=== PATIENT | female | born 1990 | race Asian ===

== ENCOUNTER 2019-08-19 18:45 | Observation (INO) | payer BC, SELFPAY ==
[2019-08-19] VITALS (19 sets, daily range): BP systolic 142; BP diastolic 79; PULSE 69–104; TEMP 36.8–36.9; O2SAT 99–100; BMI 28.6
--- NOTE | ~2019-08-19 | US_ITS ---
EXAMINATION: US OB limited w BPP DATE: 08/20/2019 08:02 INDICATION: Vaginal bleeding. Third trimester of . TECHNIQUE: Real-time pelvic ultrasound was performed. COMPARISON: None. FINDINGS: There is a single living fetus in vertex presentation. The placenta is fundal and normal. hear t rate is 142 beats per minute (bpm). The amniotic fluid index is 15.9 cm, which is normal. Biophysical profile performed by the technologist: breathing (30 sec sustained breathing in 30 minutes): 2 out of 2 movement (3 gross body movements in 30 minutes): 2 out of 2 tone (one episode of epzrnuc-osrpkcdiv-qvdhanm limb movement): 2 out of 2 Amniotic fluid pocket (2 cm): 2 out of 2 Total score: 8 out of 8 IMPRESSION: 1. Single living fetus in vertex presentation. 2. Biophysical profile 8 out of 8. Reviewed, dictated and finalized at location A.
--- NOTE | 2019-08-19 19:14 | PC.NURSE ---
Updated Dr. Rich on patient complaint of vaginal bleeding during . Patient referred to OB unit for assessment per Dr. Rich. Patient reports vaginal bleeding bright red x1 panty liner at 1800. Patient states bleeding has decreased and she is only spotting with wiping dark red/brown blood. Patient denies any cramping/contractions or pain in abdomen. Abdomen palpates soft. VSS. Patient denies complications with current . FHT reactive. Orders received.
--- NOTE | 2019-08-19 20:07 | PC.NURSE ---
Updated Dr. Rich on SVE /-2. Blood noted on glove following SVE. FHT deceleration x2.5 minutes into 90's following contraction. Order given.
[2019-08-19 21:02] LABS: Basophils Percent Auto 0.2 % (0.2-1.2); Eosinophils Percent Auto 0.2 % (0-4.4); Hematocrit 36.6 % (37.0-47.0); Hemoglobin 11.1 g/dL (12.0-15.0); Immature Granulocyte Absolute 0.05 K/mm3 (0.00-0.031); Immature Granulocyte Percent A 0.6 % (0-0.5); Lymphocytes Absolute Auto 1.91 K/mm3 (0.9-3.2); Lymphocytes Percent Auto 21.1 % (18.3-44.2); Mean Corpuscular HGB Conc 30.3 g/dl (32-36); Mean Corpuscular Hemoglobin 20.9 pg (26-34); Mean Corpuscular Volume 68.8 fl (80-100); Mean Platelet Volume 11.1 fl (7.4-10.4); Neutrophils Absolute Auto 6.1 K/mm3 (1.3-6.7); Neutrophils Percent Auto 66.9 % (45.5-73.1); Platelet Count Result 291 k/mm3 (150-375); Red Blood Count 5.32 M/mm3 (4.2-5.4); Red Cell Distribution Width 18.5 % (11.5-14.5)
[2019-08-19 21:12] LABS: Alanine Aminotransferase 8 U/L (4-35); Albumin Level 4.1 g/dL (3.5-5.1); Alkaline Phosphatase 169 U/L (38-126); Aspartate Amino Transferase 18 U/L (14-36); Bilirubin,Total 0.3 mg/dL (0.2-1.3); Blood Urea Nitrogen 6 mg/dL (7-17); Calcium 9.2 mg/dL (8.4-10.2); Carbon Dioxide 23 mmol/L (22-30); Chloride 104 mmol/L (98-107); Estimated CRCL calculation 128 ml/min; Estimated Glomerular Filt Rate > 60; Glucose 92 mg/dL (65-105); Partial Thromboplastin Time 28.1 SECONDS (22.3-36.8); Potassium 4.3 mmol/L (3.4-5.0); Prothrombin Time 12.4 Seconds (11.1-14.7); Sodium 135 mmol/L (137-145)
[2019-08-19 21:13] LABS: Fibrinogen 424 mg/dl (215-510)
--- NOTE | 2019-08-19 22:47 | PC.NURSE ---
Updated Dr. Rich on patient lab results, maternal assessment and FHT. Order given to keep patient overnight for observation and ultrasound in AM with BPP.
--- NOTE | 2019-08-19 22:50 | PC.NURSE ---
Plan of care discussed with patient. Patient agrees with plan of care and denies questions.
[2019-08-20 02:37] VITALS: TEMP 36.7
[2019-08-20 05:00] VITALS: TEMP 36.6
--- NOTE | 2019-08-20 05:37 | PC.NURSE ---
Patient reports decreased vaginal spotting with wiping. Patient denies any new vaginal bleeding, abdominal pain/cramping. Patient resting comfortably and dozing.
[2019-08-20 08:12] VITALS: BP 121/77; PULSE 72
--- NOTE | 2019-08-20 08:24 | PC.NURSE ---
Return from u/s and will compare and discuss with Dr Rich.
--- NOTE | 2019-08-22 17:29 | P.PNOB_ITS ---
OB - Triage/Final Diagnosis Evaluation Laboratory results: Laboratory Tests 08/19/19 08/19/19 08/19/19 20:18 20:18 20:18 WBC 9.0 RBC 5.32 Hgb 11.1 L Hct 36.6 L MCV 68.8 L MCH 20.9 L MCHC 30.3 L RDW 18.5 H Plt Count 291 MPV 11.1 H Immature Gran % (Auto) 0.6 H Neut % (Auto) 66.9 Lymph % (Auto) 21.1 [place] % (Auto) 11.0 H Eos % (Auto) 0.2 Baso % (Auto) 0.2 Lymph # (Auto) 1.91 [place] # (Auto) 1.0 H Eos # (Auto) 0.0 Baso # (Auto) 0.0 Abs Immat Gran (auto) 0.05 H Absolute Neuts (auto) 6.1 Absolute Nucleated RBC 0.0 Nucleated RBC % 0.0 % Immature Plt Fraction 4.0 PT INR APTT Fibrinogen 424 Sodium 135 L Potassium 4.3 Chloride 104 Carbon Dioxide 23 BUN 6 L Creatinine 0.50 L Estim Creat Clear Calc 128 Estimated GFR > 60 Glucose 92 Calcium 9.2 Total Bilirubin 0.3 AST 18 ALT 8 Alkaline Phosphatase 169 H Total Protein 8.0 Albumin 4.1 Blood Type Antibody Screen 08/19/19 08/19/19 20:18 20:18 WBC RBC Hgb Hct MCV MCH MCHC RDW Plt Count MPV Immature Gran % (Auto) Neut % (Auto) Lymph % (Auto) [place] % (Auto) Eos % (Auto) Baso % (Auto) Lymph # (Auto) [place] # (Auto) Eos # (Auto) Baso # (Auto) Abs Immat Gran (auto) Absolute Neuts (auto) Absolute Nucleated RBC Nucleated RBC % % Immature Plt Fraction PT 12.4 INR 1.0 APTT 28.1 Fibrinogen Sodium Potassium Chloride Carbon Dioxide BUN Creatinine Estim Creat Clear Calc Estimated GFR Glucose Calcium Total Bilirubin AST ALT Alkaline Phosphatase Total Protein Albumin Blood Type O Positive Antibody Screen Negative Final Diagnosis (1) Vaginal bleeding during , antepartum: Code(s): O46.90 - Antepartum hemorrhage, unspecified, unspecified trimester Status: Acute
--- NOTE | 2019-08-22 17:30 | PM.IMHP ---
H&P: HPI History of Present Illness Chief complaint: Vaginal Bleeding Narrative: Sj Martin I is a 29 year old female at 37 weeks gestation initially presented to L&D with vaginal bleeding. Review of Systems Constitutional: Constitutional: Reports no additional constitutional complaints ENT: Reports system reviewed and no additional complaints, except as documented Cardiovascular: Cardiovascular: Reports no additional cardiovascular complaints Respiratory: Respiratory: Reports no additional respiratory complaints Gastrointestinal: Gastrointestinal: Reports no additional gastrointestinal complaints Genitourinary: Comments: vaginal bleeding Musculoskeletal: Musculoskeletal: Reports no additional musculoskeletal complaints Neurologic: Reports system reviewed and no additional complaints, except as documented Psychiatric: Psychiatric: Reports no additional psychiatric complaints COUNT INCLUDES THE [facility] Family History Family History (Updated 08/08/19 @ 14:38 by Amber Santamaria RN) Other Unknown family medical history Social History Social History Substance use: never Spiritual care concerns: No Meds Home Medications and Allergies Home Medications Medication Instructions Recorded Confirmed Type PNV cmb#95-ferrous fumarate-FA 1 tablet PO DAILY 08/08/19 08/20/19 History [] Allergies Allergy/AdvReac Type Severity Reaction Status Date / Time No Known Allergies Allergy Verified 08/20/19 05:41 Exam Narrative: Exam Narrative: exam performed by L&D lead performance support analyst. Assessment and Plan Assessment and plan (1) Term : Code(s): Z34.90 - Encounter for supervision of normal , unspecified, unspecified trimester Status: Acute (2) Vaginal bleeding during , antepartum: Code(s): O46.90 - Antepartum hemorrhage, unspecified, unspecified trimester Status: Acute
== END 2019-08-20 09:45 | disposition home or self-care (01) ==
PROVIDERS: Admitting Provider Obstetrics & Gynecology; PCP Emergency Medicine; Visit Provider Obstetrics & Gynecology
DX: O46.93 Antepartum hemorrhage, unspecified, third trimester (principal); Z3A.37 37 weeks gestation of pregnancy
CPT/HCPCS: 36415; 76815; 76819; 80053; 85025; 85055; 85384; 85610; 85730; 86850; 86900; 86901; G0378; G0379

== ENCOUNTER 2019-08-28 15:35 | Observation (INO) | payer BC, SELFPAY ==
--- NOTE | ~2019-08-28 | US_ITS ---
EXAMINATION: US OB limited w BPP EXAM DATE: 08/28/2019 18:40 INDICATION: Bleeding. . Third trimester. TECHNIQUE: Pelvic obstetrical transabdominal sonogram was performed by a technologist. There are mu ltiple grayscale and Doppler images available for interpretation. Comparison is made to prior examina tion from 08/20/2019. FINDINGS: There is a single fetus identified in vertex presentation with a heart rate of 127 beats pe r minute. The placenta is located in the fundal position. There is no sonographic evidence of retrop lacental hemorrhage identified. The amniotic fluid index is 12.4 centimeters, which is normal. BIOPHYSICAL PROFILE (performed by the technologist) breathing (30 sec sustained breathing in 30 minutes): 2 out of 2 movement (3 gross body movements in 30 minutes): 2 out of 2 tone (one episode of qlcyfix-neeojgjnw-veaocsd limb movement): 2 out of 2 Amniotic fluid pocket (2 cm): 2 out of 2 Total score: 8 out of 8 IMPRESSION: 1. Single fetus with heart rate of 127 bpm. 2. Normal biophysical profile score of 8 out of 8. 3. Normal DANIEL 12.4 cm. 4. Unremarkable placenta. Reviewed, dictated and finalized at location A.
[2019-08-28 15:47] VITALS: TEMP 36.8
[2019-08-28 17:45] VITALS: BP 105/67; PULSE 80
--- NOTE | 2019-08-28 17:58 | OBADM ---
This patient, Sj Martin I, admitted to the OB room Labor/Delivery/Recovery 106 for observation. Patient/family oriented to hospital policies and general routines including ID bracelet, bed and alarms, visiting hours, pain management, procedures, bathroom and other care routines, personal items, smoking policy, room service/diet, and visiting hours. Patient/Family are encouraged to report perceived risks to care and to ask questions if they do not understand what they are told or what they should do.
--- NOTE | 2019-08-29 15:36 | PM.OBTRLD ---
OB - Triage/Final Diagnosis Evaluation Vital signs: Vital Signs - 24 hr 08/28/19 15:47 08/28/19 17:45 Temperature 36.8 C Pulse Rate 80 Blood Pressure 105/67 Final Diagnosis (1) Vaginal bleeding during , antepartum: Code(s): O46.90 - Antepartum hemorrhage, unspecified, unspecified trimester Status: Acute
== END 2019-08-28 19:50 | disposition home or self-care (01) ==
PROVIDERS: Admitting Provider Obstetrics & Gynecology; PCP Emergency Medicine; Visit Provider Obstetrics & Gynecology
DX: O46.93 Antepartum hemorrhage, unspecified, third trimester (principal); Z3A.00 Weeks of gestation of pregnancy not specified
CPT/HCPCS: 76815; 76819; G0378; G0379

== ENCOUNTER 2019-08-29 09:01 | Inpatient (IN) | payer BC, SELFPAY ==
[2019-08-29] VITALS (148 sets, daily range): BP systolic 62–140; BP diastolic 27–90; PULSE 64–147; RESP 16; TEMP 36.6–38.2; O2SAT 92–100; BMI 28.6
[2019-08-29] MEDS: LACTATED RINGERS 1,000 ML 125 ML IV CONT ×3 (10:43→20:10)
[2019-08-29 10:45] LABS: Basophils Percent Auto 0.1 % (0.2-1.2); Hematocrit 37.3 % (37.0-47.0); Hemoglobin 11.7 g/dL (12.0-15.0); Immature Granulocyte Absolute 0.06 K/mm3 (0.00-0.031); Immature Granulocyte Percent A 0.4 % (0-0.5); Immature Platelet Fraction Pct 2.6 % (0.9-11.2); Lymphocytes Absolute Auto 1.04 K/mm3 (0.9-3.2); Lymphocytes Percent Auto 6.9 % (18.3-44.2); Mean Corpuscular HGB Conc 31.4 g/dl (32-36); Mean Corpuscular Hemoglobin 21.3 pg (26-34); Mean Corpuscular Volume 67.9 fl (80-100); Monocytes Absolute Auto 0.7 K/mm3 (0.1-0.6); Monocytes Percent Auto 4.5 % (2.6-8.5); Neutrophils Absolute Auto 13.2 K/mm3 (1.3-6.7); Neutrophils Percent Auto 88.1 % (45.5-73.1); Platelet Count Result 276 k/mm3 (150-375); Red Blood Count 5.49 M/mm3 (4.2-5.4); Red Cell Distribution Width 19.6 % (11.5-14.5)
--- NOTE | 2019-08-29 10:45 | PM.IMHP ---
H&P: HPI History of Present Illness Chief complaint: Contractions Narrative: Sj Martin I is a 29 year old female at 38 weeks and 5 days gestation presenting to L&D with contractions. She states she has been having intermittent contractions over the last week, but became more regular and intense this morning. Contractions are about every 6-8 minutes apart. She has also had unexplained vaginal bleeding over the last week or so. BPP and US have been reassuring. Placenta is fundal location. She had red bleeding yesterday and was evaluated on L&D cervix was 1cm This morning, the bleeding is more like brownish discharge. On initial exam on L&D, her cervix was noted to be dilated to 3cm. Review of Systems Constitutional: Constitutional: Reports no additional constitutional complaints Cardiovascular: Cardiovascular: Reports no additional cardiovascular complaints Respiratory: Respiratory: Reports no additional respiratory complaints Gastrointestinal: Gastrointestinal: Reports no additional gastrointestinal complaints Genitourinary: Genitourinary: Reports no additional female genitourinary complaints Neurologic: Reports system reviewed and no additional complaints, except as documented Psychiatric: Psychiatric: Reports no additional psychiatric complaints [facility] Family History Family History Other Unknown family medical history Social History Social History Substance use: never Spiritual care concerns: No Meds Home Medications and Allergies Home Medications Medication Instructions Recorded Confirmed Type PNV cmb#95-ferrous fumarate-FA 1 tablet PO DAILY 08/08/19 08/20/19 History [] Allergies Allergy/AdvReac Type Severity Reaction Status Date / Time No Known Allergies Allergy Verified 08/20/19 05:41 Exam Const: General: no acute distress and uncomfortable (with contractions) Resp: Effort & Inspection: normal respiratory effort Cardio: Rate: regular rate GI: GI Palp: Yes Soft to palpation Skin: General skin exam: normal color Psych: Mental Status: mental status grossly normal Affect: normal affect Assessment and Plan Assessment and plan (1) Term : Code(s): Z34.90 - Encounter for supervision of normal , unspecified, unspecified trimester Status: Acute (2) Vaginal bleeding during , antepartum: Code(s): O46.90 - Antepartum hemorrhage, unspecified, unspecified trimester Status: Acute (3) Active labor: Status: Acute Assessment and Plan: Admit to L&D Pain management as requested GBS negative Discussed augmentation of labor if needed
--- NOTE | 2019-08-29 11:07 | LDADM ---
This patient, Sj Martin I, was admitted to Labor/Delivery/Recovery 106 on 08/29/19 at 09:01. Plans for labor, pain management and were discussed with patient. Patient/family oriented to hospital policies and general routines including ID bracelet, bed and alarms, visiting hours, pain management, procedures, bathroom and other care routines, personal items, smoking policy, room service/diet and guest tray routines, security routines, and visiting hours. Patient/Family are encouraged to report perceived risks to care and to ask questions if they do not understand what they are told or what they should do. See OBIX for further documentation.
[2019-08-29] MEDS: OXYTOCIN 30 UNITS/NS 500 ML 30 UNITS/500 ML BAG 125 UNITS IV CONT ×2 (14:43→20:09)
--- NOTE | 2019-08-29 14:50 | WPDANESEPPF ---
Anes - Initial Pre Proc Eval Date/Time: 08/29/19 12:47 Surgeon: Sea Trimble MD Pre Op Diagnosis: Contractions Patient Data Age: 29 Gender: F Height: 1.57 m Weight: 71 kg Last Vital Signs Temp 37.1 C 08/29/19 13:00 Pulse 83 08/29/19 14:45 BP 113/67 08/29/19 14:45 Pulse Ox 100 08/29/19 14:46 Allergies Allergy/AdvReac Type Severity Reaction Status Date / Time No Known Allergies Allergy Verified 08/20/19 05:41 Home Medications Medication Instructions Recorded Confirmed Type PNV cmb#95-ferrous fumarate-FA 1 tablet PO DAILY 08/08/19 08/20/19 History [] Laboratory Tests 08/29/19 08/29/19 08/29/19 10:37 10:37 10:37 WBC 15.0 K/mm3 H K/mm3 (4.5-10.0) RBC 5.49 M/mm3 H M/mm3 (4.2-5.4) Hgb 11.7 g/dL L g/dL (12.0-15.0) Hct 37.3 % % (37.0-47.0) MCV 67.9 fl L fl (80-100) MCH 21.3 pg L pg (26-34) MCHC 31.4 g/dl L g/dl (32-36) RDW 19.6 % H % (11.5-14.5) Plt Count 276 k/mm3 k/mm3 (150-375) MPV TNP Immature Gran % (Auto) 0.4 % % (0-0.5) Neut % (Auto) 88.1 % H % (45.5-73.1) Lymph % (Auto) 6.9 % L % (18.3-44.2) [place] % (Auto) 4.5 % % (2.6-8.5) Eos % (Auto) 0.0 % % (0-4.4) Baso % (Auto) 0.1 % L % (0.2-1.2) Lymph # (Auto) 1.04 K/mm3 K/mm3 (0.9-3.2) [place] # (Auto) 0.7 K/mm3 H K/mm3 (0.1-0.6) Eos # (Auto) 0.0 K/mm3 K/mm3 (0-0.3) Baso # (Auto) 0.0 K/mm3 K/mm3 (0.0-0.1) Abs Immat Gran (auto) 0.06 K/mm3 H K/mm3 (0.00-0.031) Absolute Neuts (auto) 13.2 K/mm3 H K/mm3 (1.3-6.7) Absolute Nucleated RBC 0.0 K/mm3 K/mm3 (0.0-0.012) Nucleated RBC % 0.0 % % (0.0-0.2) % Immature Plt Fraction 2.6 % % (0.9-11.2) RPR Pending Blood Type O Positive Antibody Screen Negative Patient hx anesthesia problems: none Family hx anesthesia problems: none PMFSH Family History Family History Other Unknown family medical history Social History Social History Smoking status: Never smoker Substance use: never Spiritual care concerns: No Anes - Eval Final PreProcedure Day of Procedure 08/29/19 14:50 Patient weight: normal Heart: regular rate and rhythm Lungs: normal air movement Airway: Mallampati scale class 1 Neurological: alert and oriented ASA classification: II Emergent: no Anesthetic plan: proceed Anesthesia type and monitoring: regional epidural Informed Consent: The patient's anesthetic plan and its attendant risks and benefits were discussed with the patient/family/POA. Questions were solicited and answers provided to the satisfaction of the patient/family/POA.
[2019-08-29] MEDS: BENZOCAINE 20% AER SPR (*SP) 56 GM CAN 1 SPRAY TOPICAL (22:12)
[2019-08-29] MEDS: WITCH HAZEL 40 PADS 1 PAD TOPICAL (22:12)
--- NOTE | 2019-08-30 02:18 | OP_ITS ---
DATE OF PROCEDURE: 08/29/2019 PROCEDURE: Normal spontaneous vaginal delivery. PREDELIVERY DIAGNOSES: 1. 38-week term gestation. 2. Active labor. 3. Vaginal bleeding. POSTDELIVERY DIAGNOSES: 1. 38-week term gestation. 2. Active labor. 3. Vaginal bleeding. 4. Status post normal spontaneous vaginal delivery. ANESTHESIA: Epidural. ESTIMATED BLOOD LOSS: 300 mL. FINDINGS: 1. Single live male , born on August 29, 2019 at 1936, weight 8 pounds 1 ounce, 9, 9. 2. Second-degree perineal lacerations repair with 2-0 Vicryl. COMPLICATIONS: None apparent. BRIEF HISTORY: A 29-year-old, G2, P0, at 38 weeks and 5 days gestation presented to Labor and Delivery in early labor. Towards the end of her , she did have some unexplained vaginal bleeding. DESCRIPTION OF PROCEDURE: Once the patient was noted to be completely dilated and ready to push, the labor bed was broken down. Legs were placed in stirrups for support. With contractions and maternal efforts, the presented in OA position. The head was delivered. A nuchal cord was noted and reduced at the perineum. Gentle downward traction applied and the anterior shoulder delivered without any incident, followed by the posterior shoulder and the rest of the body. The was handed off to the waiting mother. Delayed cord clamping was performed for approximately 1 minute. Cord gases were collected. Traction applied on umbilical cord for delivery of the placenta, which was delivered spontaneously. Fundal massage was applied. Uterus was noted to be firm. Exam was performed to identify any lacerations. A second-degree perineal laceration was noted and this was repaired using 2-0 Vicryl. Good hemostasis noted. Uterine fundus was noted to be firm. IV Pitocin was running. At this point, this concluded the procedure. All instrument and sponge counts at the end of the procedure were correct. The patient resting in the labor room in stable condition. D I MT: Jerome
[2019-08-30 05:32] LABS: Hematocrit 28.6 % (37.0-47.0); Hemoglobin 8.9 g/dL (12.0-15.0)
[2019-08-30] MEDS: IBUPROFEN 600 MG TABLET PO ×2 (05:48→13:07)
[2019-08-30 07:08] LABS: Rapid Plasma Reagin Non-Reactive (NonReactive)
[2019-08-30 08:00] VITALS: BP 94/56; PULSE 87; RESP 18; TEMP 36.7
[2019-08-30] MEDS: LANOLIN (LANSINOH) 7.5 GM CREAM 1 APPLIC TOPICAL (10:00)
[2019-08-30] MEDS: POLYSACCHARIDE IRON COMPLEX 150 MG CAPSULE PO (10:00)
[2019-08-30] MEDS: MULTIVIT/MIN/PREN/FOL AC/IRON TABLET 1 TAB PO (10:00)
[2019-08-30] MEDS: DOCUSATE SODIUM 100 MG CAPSULE PO (10:00)
--- NOTE | 2019-08-30 10:20 | PC.NURSE ---
Consulted with patient, mother reports infant has been sleepy and difficult to latch. Reviewed infant feeding cues, frequencies, duration of feedings, feeding elimination flow sheet, and signs of adequate intake. Demonstrated stimulation techniques to wake infant for feeding. Assisted with infant to breast. Reviewed positioning/alignment in cross cradle, holding breast in U hold and guided asymmetrical latch on. was able to latch correctly with first attempt. Infant nursed eagerly, with steady draws and frequent swallowing noted. Reviewed signs of a correct latch, effective nursing and suck swallow ratio. was able to maintain latch without discomfort to mother. Nipple care reviewed. Advised to stimulate during feeding to increased intake and assist with maintaining deep latch with consistent suck swallow. Instructed mother to call out for RN assistance if she is unable to latch for feeding or she has discomfort with nursing. Instructed feeding should be initiated three hours from start of last feeding or if feeding cues are noted before. Mother voiced understanding of information shared.
--- NOTE | 2019-08-30 15:44 | P.PNOB_ITS ---
OB - PN: Subj Subjective Date/time seen: 08/30/19 15:44 Interval history: 29yo hs/p on 08/29. Doing well, pain controlled. Concerns about laceration repair site. Lochia present. Patient comments: pain well controlled baby status: doing well [place] feeding status: exclusively breast feeding OB - PN: Obj Data Labs CBC & Chem 7: 08/30/19 04:56 Labs: Laboratory Results - last 24 hr 08/29/19 08/30/19 10:37 04:56 Hgb 8.9 L Hct 28.6 L RPR Non-reactive OB - PN A/P Assessment and Plan (1) (normal spontaneous vaginal delivery): Code(s): O80 - Encounter for full-term uncomplicated delivery Status: Acute Assessment and Plan: routine care pain management DC home tomorrow Time Spent With Patient Time: Total time spent is greater than 50% in coordination of care (as documented) at patient's floor/unit and/or counseling patient: Review of Systems Constitutional: Constitutional: Reports no additional constitutional complaints Cardiovascular: Cardiovascular: Reports no additional cardiovascular co mplaints Respiratory: Respiratory: Reports no additional respiratory complaints Gastrointestinal: Gastrointestinal: Reports no additional gastrointestinal complaints Genitourinary: Genitourinary: Reports as per HPI Exam Const: General: comfortable, no acute distress, alert, awake and acute distress Resp: Effort & Inspection: normal respiratory effort Cardio: Rate: regular rate Other: soft, non tender, fundus firm : Other: Perineal laceration repair site has come apart. Deeper tissue intact. Bedside reapproximation of perineal skin edges was performed with local lidocaine, and 3-0 Vicryl. Patient tolerated well. Psych: Appearance: grossly normal Mental Status: mental status grossly normal Affect: normal affect Attitude: cooperative Judgement: Good judgement present (Psych)
[2019-08-30 16:10] VITALS: BP 108/59; PULSE 81; RESP 18; TEMP 36.8; O2SAT 98
--- NOTE | 2019-08-30 17:46 | WPDANLDPN2 ---
Anes-Prog Note L&D Date/Time: 08/30/19 17:46 Comfortable throughout: labor and delivery Neuraxial method: epidural Epidural/Spinal procedure site: clean & non-tender Neuro status: Neuro function grossly intact. Cardiovascular status: normal Respiratory status: normal Airway patency: baseline Mental status: baseline Post-Op hydration status: normal Vital Signs: Last Vital Signs Temp 36.8 C 08/30/19 16:10 Pulse 81 08/30/19 16:10 Resp 18 08/30/19 16:10 BP 108/59 L 08/30/19 16:10 Pulse Ox 98 08/30/19 16:10 I/O: Intake & Output 08/30/19 08/30/19 08/30/19 07:59 15:59 23:59 Intake Total 500 Balance 500 Post-procedural complaints: none Patient feedback: Patient satisfied with anesthetic care.
[2019-08-31 07:55] VITALS: BP 126/68; PULSE 87; RESP 18; TEMP 37.2; O2SAT 100
[2019-08-31 08:15] VITALS: PULSE 87; RESP 18; O2SAT 100
[2019-08-31] MEDS: POLYSACCHARIDE IRON COMPLEX 150 MG CAPSULE PO (08:26)
[2019-08-31] MEDS: MULTIVIT/MIN/PREN/FOL AC/IRON TABLET 1 TAB PO (08:26)
[2019-08-31] MEDS: DOCUSATE SODIUM 100 MG CAPSULE PO (08:27)
--- NOTE | 2019-08-31 10:31 | PC.NURSE ---
Patient viewed the discharge video Mother & Baby Care, The First Two Weeks . Patient was given the opportunity and encouraged to ask questions. Patient verbalized understanding of information shared and has been given the mother/baby guide for home reference.
[2019-09-01 09:01] VITALS: BP 108/70; PULSE 85; RESP 16; TEMP 37.1; O2SAT 100
--- NOTE | 2019-09-03 10:03 | PM.OBDSVD ---
DS: Diagnosis Admitting Diagnosis Admitting Diagnosis: Encounter for supervision of normal , unspecified, unspecified trimester Discharge Diagnosis (1) (normal spontaneous vaginal delivery): Code(s): O80 - Encounter for full-term uncomplicated delivery Status: Acute (2) Vaginal bleeding during , antepartum: Code(s): O46.90 - Antepartum hemorrhage, unspecified, unspecified trimester Status: Acute OB - DS: Summary OB Procedures : None OB Procedures Intrapartum: Spontaneous Vag Delivery OB Procedures: : None Peripartum Data Infant Delivery Method: Natural Vaginal Laceration description: Labial Status at Discharge Overall status at discharge: patient is progressing back to baseline Time Spent with Patient Time attestation: Total time spent providing and/or coordinating discharge services: Exam Const: General: comfortable, no acute distress, alert, awake and acute distress Resp: Effort & Inspection: normal respiratory effort Cardio: Rate: regular rate Other: soft, non tender, fundus firm : Other: Skin: General skin exam: normal color Psych: Appearance: grossly normal Mental Status: mental status grossly normal Affect: normal affect Attitude: cooperative Judgement: Good judgement present (Psych) DS: Data Data Completed and Pending Pending studies at discharge: Pending at discharge 08/29/19 19:54 Surgical [PTH] Routine Discharge Plan Discharge Attending physician on discharge: Mary Rich Discharging Clinician: Mary Rich Patient Disposition: Home, Self-Care Activity: as tolerated Diet: regular Discharge Instructions: Education: Mom and Baby Guide Given to: Mother Follow-Up: Call your delivering provider's office for an appointment to be seen in: Call for appointment Mom and baby should come to the [facility] for the follow-up appointment. Appointment Date/Time: Sunday, September 01, 2019 at 8:00 a.m. What to expect at your follow-up visit: Blood Pressure Check Physical Assessment Call [phone] if you are unable to keep your appointment time. BREAST CARE: 1. Wear a snug supportive bra. 2. For engorgement discomfort: Breast Feeding: A. Apply warm moist washcloths B. Express milk as needed to relieve engorgement C. Wear loose clothing 3. For sore nipples: A. Identify correct latch-on B. Apply warm moist washcloths before and after nursing C. Air dry nipples after nursing D. May apply Lansinoh cream to nipples EPISIOTOMY/PERINEAL CARE: 1. Until bleeding stops, use your lacey bottle after urinating 2. Change your pad frequently throughout the day 3. You may take sitz baths several times a day (fill your bathtub with warm water and soak for 20 minutes.) Do NOT bathe in the water 4. No tub baths until seen by your physician - You may shower ACTIVITY: 1. Rest as much as possible. 2. Do not exercise or lift anything heavier than your baby (such as laundry or other children.) 3. Avoid stairs or driving as much as possible. 4. Do not put anything into the vagina. No douching, tampons, or sexual activity until seen by physician. NOTIFY PHYSICIAN IF YOU HAVE ANY QUESTIONS OR IF ANY OF THE FOLLOWING SYMPTOMS OCCUR: 1. If your perineum becomes red, swollen, or more painful than what you have experienced in the hospital. 2. If your vaginal bleeding becomes foul smelling. 3. If your vaginal bleeding becomes more heavy than a period or if your bleeding changes from pink to bright red. However, you may pass an occasional walnut-sized clot once or twice for the first week . 4. If you experience a sharp, shooting pain in you calves. 5. If you discover a hard, reddened area on your breast or if you experience flu-like symptoms. DIET: 1. Eat regular, well-balanced meals. 2. Drink plenty of fluids d
== END 2019-08-31 12:57 | disposition home or self-care (01) | DRG 806 ==
LOC: ANHOB2 08-31 11:20 → ANHLDR 09-03 11:32 → ANHOB2 09-03 11:32
PROVIDERS: Admitting Provider Obstetrics & Gynecology; PCP Emergency Medicine; Visit Provider Obstetrics & Gynecology
DX: O67.9 Intrapartum hemorrhage, unspecified (principal); O75.2 Pyrexia during labor, not elsewhere classified; Z37.0 Single live birth; Z3A.38 38 weeks gestation of pregnancy; O70.1 Second degree perineal laceration during delivery; O69.81X0 Labor and delivery complicated by cord around neck, without compression, not applicable or unspecified; O99.344 Other mental disorders complicating childbirth; F41.9 Anxiety disorder, unspecified; F98.8 Other specified behavioral and emotional disorders with onset usually occurring in childhood and adolescence
CPT/HCPCS: 36415; 85014; 85018; 85025; 85055; 86592; 86850; 86900; 86901; 88307; A9270; J2590; J2795; J7120